=== PATIENT | male | born 1985 | race Two or more races ===

== ENCOUNTER 2023-02-15 05:06 | Emergency (ER) | payer BC ==
[~2023-02-15] VITALS: Ht 162.6 cm; Wt 125.7 kg
[2023-02-15] MEDS ORDERED: ACETAMINOPHEN 325 MG TAB PO ONE (05:30)
[2023-02-15 06:13] LABS: COVID19 ANTIGEN SOFIA FIA NEGATIVE (NEGATIVE)
[2023-02-15 06:15] LABS: Rapid Influenza A Negative (Negative); Rapid Influenza B Negative (Negative)
[2023-02-15 06:48] VITALS: BP 117/73; PULSE 116; RESP 18; O2SAT 93
[2023-02-15] MEDS ORDERED: cefTRIAXone SOD 1,000 MG VL IM ONE (07:15)
[2023-02-15 07:25] VITALS: TEMP 99
[2023-02-15] MEDS ORDERED: IBUP-1456 PO (07:42)
[2023-02-15] MEDS ORDERED: AZIT500T66 PO (07:42)
== END 2023-02-15 07:46 | disposition home or self-care (01) ==
LOC: EDSEX 05:06 → ER 05:06
DX: J03.90 Acute tonsillitis, unspecified (principal); E11.9 Type 2 diabetes mellitus without complications; Z20.822 Contact with and (suspected) exposure to COVID-19
CPT/HCPCS: 36415; 71045; 87426; 87804; 96372; 99284; J0696

== ENCOUNTER 2023-02-20 09:46 | Emergency (ER) | payer BC ==
[~2023-02-20] VITALS: Ht 162.6 cm; Wt 125.9 kg
[2023-02-20 09:46] VITALS: BP 148/90; PULSE 80; RESP 16; TEMP 98; O2SAT 96
[~2023-02-20 09:46] MED LIST: AZIT500T66 PO; IBUP-1456 PO
[2023-02-20] MEDS ORDERED: HYDR2.5C39 RE (11:56)
== END 2023-02-20 12:13 | disposition home or self-care (01) ==
LOC: ER 09:46
DX: K64.9 Unspecified hemorrhoids (principal); E11.9 Type 2 diabetes mellitus without complications